=== PATIENT | male | born 1970 | race American Indian/Alaskan Native ===

== ENCOUNTER 2020-10-27 00:57 | Emergency (ER) | payer BC ==
--- NOTE | 2020-10-27 02:39 | Emergency Department Report ---
ED General Adult HPI - General Chief complaint: High BP Stated complaint: DIZZINESS/VISUAL ISSUES/HEADACHE Source: patient Mode of arrival: Ambulatory Limitations: No Limitations - History of Present Illness Initial comments: Patient is a 50-year-old -[place] male with a history of hypertension and colon cancer s/p colon resection who presents to the ED with complaint of persistent elevated blood pressure as well as frontal headache for the last 2 hours after he missed finding his truck that he had packed. Patient states that he grew more aggravated and anxious after walking back and forth to various story to get his truck but was unable to do so. Patient states that he started having persistent headache and decided come to the ED for evaluation. Patient states that he is compliant with all his medications. Patient denies chest pain, shortness of breath, traumatic injury or fall, dizziness, syncope, change in vision, palpitations, back pain, fall, traumatic injury or abdominal pain, fever and chills. MD Complaint: Frontal headache, elevated BP, anxiety -: Sudden, hour(s) (2) Location: head Radiation: non-radiation Severity scale (0 -10): 2 Quality: dull Consistency: constant, now resolved Improves with: none Worsens with: other (anxiety) Associated Symptoms: denies other symptoms, headaches. denies: confusion, chest pain, cough, diaphoresis, fever/chills, loss of appetite, malaise, nausea/vomiting, rash, seizure, shortness of breath, syncope, weakness Treatments Prior to Arrival: none - Related Data Allergies Allergy/AdvReac Type Severity Reaction Status Date / Time No Known Allergies Allergy Unverified 10/27/20 01:28 ED Review of Systems ROS: Stated complaint: DIZZINESS/VISUAL ISSUES/HEADACHE Other details as noted in HPI Constitutional: other (Elevated blood pressure). denies: chills, fever Eyes: denies: eye pain, eye discharge, vision change ENT: denies: ear pain, throat pain Respiratory: denies: cough, shortness of breath, wheezing Cardiovascular: denies: chest pain, palpitations Endocrine: no symptoms reported Gastrointestinal: denies: abdominal pain, nausea, diarrhea Genitourinary: denies: urgency, dysuria Musculoskeletal: denies: back pain, joint swelling, arthralgia Skin: denies: rash, lesions Neurological: headache. denies: weakness, paresthesias Psychiatric: anxiety. denies: depression Hematological/Lymphatic: denies: easy bleeding, easy bruising ED Past Medical Hx - Past Medical History Previous Medical History?: Yes Hx Hypertension: Yes Hx of Cancer: Yes (colon) - Surgical History Past Surgical History?: Yes Additional Surgical History: multiple abdominal surgeries - Social History Smoking Status: Never Smoker Substance Use Type: None ED Physical Exam - General Limitations: No Limitations General appearance: alert, in no apparent distress - Head Head exam: Present: atraumatic, normocephalic, normal inspection - Eye Eye exam: Present: normal appearance, PERRL, EOMI Pupils: Present: normal accommodation - ENT ENT exam: Present: normal exam, normal orophraynx, mucous membranes moist, TM's normal bilaterally, normal external ear exam - Neck Neck exam: Present: normal inspection, full ROM - Respiratory Respiratory exam: Present: normal lung sounds bilaterally. Absent: respiratory distress, wheezes, rales, stridor, chest wall tenderness, accessory muscle use, decreased breath sounds, prolonged expiratory - Cardiovascular Cardiovascular Exam: Present: normal rhythm, tachycardia, normal heart sounds. Absent: systolic murmur, diastolic murmur, rubs, gallop - GI/Abdominal GI/Abdominal exam: Present: soft, normal bowel sounds. Absent: tenderness, guarding, hyperactive bowel sounds, hypoactive bowel sounds, organomegaly - Extremities Exam Extremities exam: Present: normal inspection, full ROM, normal capillary refill. Absent: tenderness, pedal edema, joint swelling, calf tenderness - Back Exam Back exam: Present: normal inspection, full ROM. Absent: CVA tenderness (L), muscle spasm, paraspinal tenderness, vertebral tenderness - Neurological Exam Neurological exam: Present: alert, oriented X3, CN II-XII intact, normal gait, reflexes normal - Psychiatric Psychiatric exam: Present: normal affect, normal mood, anxious - Skin Skin exam: Present: warm, dry, intact, normal color. Absent: rash ED Course Vital Signs 10/27/20 10/27/20 01:30 02:46 Temperature 98.7 F Pulse Rate 101 H 82 Respiratory 18 18 Rate Blood Pressure 150/111 Blood Pressure 155/109 [Left] O2 Sat by Pulse 97 97 Oximetry ED Medical Decision Making - Medical Decision Making This is a 50-year-old -[place] male with a history of hypertension and colon cancer s/p colon resection who presents to the ED with complaint of persistent elevated blood pressure as well as frontal headache for the last 2 hours after he missed finding his truck that he had packed. Patient states that he grew more aggravated and anxious after walking back and forth to various story to get his truck but was unable to do so. Patient states that he started having persistent headache and decided come to the ED for evaluation. Patient states that he is compliant with all his medications. In the ED, patient is alert and oriented x3 and is not in distress but anxious and slightly hypertensive. Patient was treated for pain in the ED and on reevaluation, patient felt better, pain resolved with medications. Patient was advised to follow-up with his primary care physician in 5 to 7 days for reevaluation. Patient is advised to continue taking his regular blood pressure medications as previously prescribed. Patient was otherwise advised return to the ED immediately if symptoms get worse. - Differential Diagnosis Anxiety; hypertension; muscle spasm; tension headache Critical care attestation.: If time is entered above; I have spent that time in minutes in the direct care of this critically ill patient, excluding procedure time. ED Disposition Clinical Impression: Uncontrolled stage 2 hypertension, Anxiety as acute reaction to exceptional stress, Spasm of muscle of lower back Disposition: DC-01 TO HOME OR SELFCARE Is pt being admited?: No Does the pt Need Aspirin: No Condition: Stable Instructions: Hypertension (ED) Additional Instructions: Take your regular medications with food, drink plenty of fluids and follow up with your primary care physician in 3-5 days for reevaluation. Return to the ED immediately if symptoms get worse. Referrals: [facility] [Provider Group] - 3-5 Days Time of Disposition: 02:38 Print Language: [id number]
[2020-10-27] MEDS ORDERED: IBUPROFEN 600 MG TAB PO ONE (02:40)
[2020-10-27] MEDS ORDERED: BUTALB/ACETAMINOPHEN/CAFFEINE TAB PO ONE (02:40)
[2020-10-27 02:47] VITALS: BP 155/109
== END 2020-10-27 04:10 | disposition home or self-care (01) ==
LOC: ED 00:57
DX: F41.1 Generalized anxiety disorder (principal); F43.0 Acute stress reaction; I10 Essential (primary) hypertension; M62.830 Muscle spasm of back; Z98.890 Other specified postprocedural states